=== PATIENT | male | born 1980 | race Hispanic/Latino ===

== ENCOUNTER 2020-10-31 18:24 | Emergency (ER) | payer OTHER ==
[~2020-10-31] VITALS: Ht 177.8 cm; Wt 72.6 kg
[2020-10-31] MEDS ORDERED: BACTRIM DS TAB1 EACH PO (19:32)
== END 2020-10-31 20:05 | disposition home or self-care (01) ==
LOC: ED 18:24
DX: L02.211 Cutaneous abscess of abdominal wall (principal); R51.9 Headache, unspecified; F17.200 Nicotine dependence, unspecified, uncomplicated
CPT/HCPCS: 10060; 99284-25; A9270